=== PATIENT | female | born 1945 | race Hispanic/Latino ===

== ENCOUNTER 2018-10-18 09:03 | Outpatient (CLI) | payer MEDICARE ==
--- NOTE | 2018-10-18 11:10 | BD ---
BONE DENSITOMETRY USING DEXA: Date: 10/18/18 HISTORY: Postmenopausal screening for osteoporosis. FINDINGS: Lumbar Spine: BMD (g/cm2) L1 1.234 T-Score: 2.2 Z-Score: 4.3 L2 1.355 T-Score: 3.0 Z-Score: 5.3 L3 1.478 T-Score: 3.6 Z-Score: 6.0 L4 1.256 T-Score: 1.8 Z-Score: 4.3 L1-L4 1.334 T-Score: 2.6 Z-Score: 4.9 Femoral Neck: 0.910 T-Score: 0.6 Z-Score: 2.6 Total Femur: 1.189 T-Score: 2.0 Z-Score: 3.7 IMPRESSION: Normal bone mineral density. No evidence of osteopenia/osteoporosis. POS: C
== END 2018-10-18 09:04 | disposition home or self-care (01) ==
LOC: BICMAMMO 09:03
PROVIDERS: ATTEND Student in an Organized Health Care Education/Training Program
DX: Z13.820 Encounter for screening for osteoporosis (principal)
CPT/HCPCS: 77080

== ENCOUNTER 2019-04-07 08:20 | Outpatient (CLI) | payer MEDICARE ==
--- NOTE | 2019-04-07 11:46 | CT ---
CT abdomen and pelvis with IV and oral contrast HISTORY: Appendiceal cancer. Restaging. COMPARISON: 05/31/2017. FINDINGS: The lung bases are clear. Right pericardial lymph node is smaller than on the prior study. At the inferior aspect of the left breast, a lobular fluid density lesion correlates with the area of cyst that has been aspirated at [facility]. Subtle areas of hypervascularity at the dome of the liver are stable. Gallbladder is surgically absen t. Cyst at the lateral cortex right kidney has enlarged slightly. No solid masses are apparent.. Spleen not visualized and presumed surgically absent. No enlarged lymph nodes or free fluid. Prominen t degenerative changes lumbar spine again demonstrated. Urinary bladder is unremarkable. Nonobstructed loops of small bowel now protrude through an umbilical and a supraumbilical anterior mi dline abdominal wall hernia, in area of prior surgery. Postoperative changes at the apex of the cecum are again demonstrated. IMPRESSION: New anterior abdominal wall hernias containing nonobstructed small bowel. Postoperative changes and other chronic-type findings are stable. No evidence of recurrent or metasta tic disease.
[2019-04-07] MEDS ORDERED: Iopamidol 370 76% 100 ML VIAL ONE (13:56)
== END 2019-04-07 08:21 | disposition home or self-care (01) ==
LOC: CT 08:20
PROVIDERS: ATTEND Internal Medicine Hematology & Oncology
DX: C18.1 Malignant neoplasm of appendix (principal); K43.9 Ventral hernia without obstruction or gangrene; N60.02 Solitary cyst of left breast; N28.1 Cyst of kidney, acquired; M47.816 Spondylosis without myelopathy or radiculopathy, lumbar region; K42.9 Umbilical hernia without obstruction or gangrene; K76.89 Other specified diseases of liver; Z98.890 Other specified postprocedural states
CPT/HCPCS: 74177; 82565; Q9967

== ENCOUNTER 2019-08-29 14:26 | Outpatient (CLI) | payer MEDICARE ==
--- NOTE | 2019-08-29 16:31 | MMO ---
Bilateral MAMMO Bilat Screen [facility]. CLINICAL HISTORY: Patient is 73 years old and is seen for screening. The patient has no family history of breast cancer. The patient has no personal history of cancer. VIEWS: The views performed were: bilateral craniocaudal with tomosynthesis and bilateral mediolateral oblique with tomosynthesis. FILMS COMPARED: The present examination has been compared to prior imaging studies performed at [facility] on 04/28/2013, 12/29/2013, 08/11/2014 and 04/04/2016. This study has been interpreted with the assistance of computer-aided detection. MAMMOGRAM FINDINGS: There are scattered fibroglandular densities. There are masses with circumscribed margins seen in both breasts. Over the years, many bilateral breast masses of varying sizes have been shrinking, growing, and resolving, consistent with multiple bilateral cysts. There are no suspicious masses, suspicious calcifications, or new areas of architectural distortion. IMPRESSION: THERE IS NO MAMMOGRAPHIC EVIDENCE OF MALIGNANCY. A ROUTINE FOLLOW-UP MAMMOGRAM IN 1 YEAR IS RECOMMENDED. THE RESULTS OF THIS EXAM WERE SENT TO THE PATIENT. ACR BI-RADS Category 2 - Benign finding MAMMOGRAPHY NOTE: 1. A negative mammogram report should not delay a biopsy if a dominant of clinically suspicious mass is present. 2. Approximately 10% to 15% of breast cancers are not detected by mammography. 3. Adenosis and dense breasts may obscure an underlying neoplasm. Reported by: RADHA DOUGLAS MD Electonically Signed: [id number]
== END 2019-08-29 14:27 | disposition home or self-care (01) ==
LOC: BICMAMMO 14:26
PROVIDERS: ATTEND Student in an Organized Health Care Education/Training Program
DX: Z12.31 Encounter for screening mammogram for malignant neoplasm of breast (principal)
CPT/HCPCS: 77063; 77067

== ENCOUNTER 2019-10-16 08:13 | Outpatient (CLI) | payer MEDICARE ==
--- NOTE | 2019-10-16 11:04 | CT ---
CT ABDOMEN AND PELVIS WITH CONTRAST: Oral contrast was administered. Multiplanar reconstruction. INDICATION: Malignant neoplasm of appendix. Followup. COMPARISON: Comparison is made to a prior CT of abdomen and pelvis dated 04/07/2019. FINDINGS: Lung bases are clear. There continues to be a low-density mass in the left breast which was described on the prior exam as a cyst which has been previously aspirated. It is slightly larger today measuring up to 1.8 cm. Liver is unremarkable. 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 The sto mach and duodenum are unremarkable. The pancreas is unremarkable. Adrenal glands normal. Kidneys unremarkable. There continues to be a low-density cystic lesion in the lateral right renal c ortex measuring 2.0 cm which is stable. Small bowel loops are normal caliber. Anterior abdominal wall hernia in the midline at the umbilicus is again noted. Small bowel loops herniate through this defect and herniate into the subcutaneous a dipose tissue. There is no evidence of obstruction or strangulation. The herniated loops of small b owel have a similar appearance to the prior exam. Prominent stool throughout the colon. Scattered diverticula. Aorta normal caliber. No adenopathy. Images through the pelvis show evidence of hysterectomy. A small amount of free fluid in the deep pe lvis on the right. This is similar to the prior study. The urinary bladder is mildly distended and unremarkable. Review of bone windows shows a focal area of sclerosis in the anterior left sacrum at the left SI joint which is stable and probably degenerative. Degenerative spine changes are again no isaak. A focal area of low density in the L1 and L2 vertebrae to the right of midline remain stable. IMPRESSION: 1. A low-density mass in the left breast is again seen, slightly larger today. This was previously described as a cyst. Recommend clinical correlation and followup mammogram and/or ultrasound as aleja cated. 2. CT abdomen and pelvis otherwise remains stable with nonacute stable findings described above. POS: [facility]
[2019-10-16] MEDS ORDERED: Iopamidol-370 76% 500 ML 1 ML ONE (14:34)
== END 2019-10-16 08:14 | disposition home or self-care (01) ==
LOC: BICCT 08:13
PROVIDERS: ATTEND Internal Medicine Hematology & Oncology
DX: C18.1 Malignant neoplasm of appendix (principal); N63.20 Unspecified lump in the left breast, unspecified quadrant; K43.9 Ventral hernia without obstruction or gangrene; N28.1 Cyst of kidney, acquired; M47.9 Spondylosis, unspecified; N32.89 Other specified disorders of bladder; M89.9 Disorder of bone, unspecified; Z90.49 Acquired absence of other specified parts of digestive tract; Z90.710 Acquired absence of both cervix and uterus; Z90.81 Acquired absence of spleen
CPT/HCPCS: 74177; Q9967

== ENCOUNTER 2020-11-24 09:45 | Outpatient (CLI) | payer MEDICARE ==
[2020-11-24] MEDS ORDERED: Iopamidol-370 76% 500 ML 1 ML ONE (12:03)
== END 2020-11-24 09:46 | disposition home or self-care (01) ==
LOC: BICCT 09:45
PROVIDERS: ATTEND Internal Medicine Hematology & Oncology
DX: C18.1 Malignant neoplasm of appendix (principal)
CPT/HCPCS: 74177; 82565; Q9967

== ENCOUNTER 2021-01-12 09:04 | Outpatient (CLI) | payer MEDICARE | END 2021-01-12 09:05 | disposition home or self-care (01) | LOC: BICMAMMO 09:04 | PROVIDERS: ATTEND Internal Medicine | DX: N64.4 Mastodynia (principal); N63.21 Unspecified lump in the left breast, upper outer quadrant | CPT/HCPCS: 76642 ×2; 77066; G0279 ==

== ENCOUNTER 2022-01-16 12:51 | Outpatient (CLI) | payer MEDICARE | END 2022-01-16 12:52 | disposition home or self-care (01) | LOC: BICMAMMO 12:51 | PROVIDERS: ATTEND Internal Medicine | DX: Z12.31 Encounter for screening mammogram for malignant neoplasm of breast (principal) | CPT/HCPCS: 77063; 77067 ==

== ENCOUNTER 2022-11-24 10:43 | Outpatient (CLI) | payer MEDICARE ==
[2022-11-24] MEDS ORDERED: Iopamidol 370 76% 100 ML VIAL ONE (14:59)
== END 2022-11-24 10:44 | disposition home or self-care (01) ==
LOC: CT 10:43
PROVIDERS: ATTEND Internal Medicine Hematology & Oncology
DX: C18.1 Malignant neoplasm of appendix (principal); R97.0 Elevated carcinoembryonic antigen [CEA]; R91.8 Other nonspecific abnormal finding of lung field; K43.9 Ventral hernia without obstruction or gangrene; Z90.49 Acquired absence of other specified parts of digestive tract
CPT/HCPCS: 74177; 82565; Q9967

== ENCOUNTER 2023-01-09 14:58 | Outpatient (CLI) | payer MEDICARE | END 2023-01-09 14:59 | disposition home or self-care (01) | LOC: BICMAMMO 14:58 | PROVIDERS: ATTEND Internal Medicine | DX: N63.10 Unspecified lump in the right breast, unspecified quadrant (principal) | CPT/HCPCS: 77066; G0279 ==

== ENCOUNTER 2024-01-25 09:45 | Outpatient (CLI) | payer MEDICARE | END 2024-01-25 09:46 | disposition home or self-care (01) | LOC: BICMAMMO 09:45 | PROVIDERS: ATTEND Nurse Practitioner | DX: N64.89 Other specified disorders of breast (principal) | CPT/HCPCS: 77065; G0279 ==